=== PATIENT | male | born 1940 | race Caucasian/White ===

== ENCOUNTER 2018-07-04 05:29 | Emergency (ER) | payer MEDICARE ==
[~2018-07-04] VITALS: Ht 185.4 cm; Wt 83.9 kg
[~2018-07-04 05:29] MED LIST: ASPI325 PO; ATOR20 PO; AZIT250 PO; CEFD300 PO; CITA20 PO; GLIP5 PO; JEVITY; LEVSOD100 PO; MECL12.5 PO; METF500 PO; METO25 PO; METO50ER PO; Novolog100 UNIT/1 SQ
== END 2018-07-04 07:03 | disposition home or self-care (01) ==
LOC: ER 05:29
DX: Z46.59 Encounter for fitting and adjustment of other gastrointestinal appliance and device (principal); C80.1 Malignant (primary) neoplasm, unspecified; Z88.8 Allergy status to other drugs, medicaments and biological substances; Z79.899 Other long term (current) drug therapy; Z79.82 Long term (current) use of aspirin; Z79.4 Long term (current) use of insulin; Z87.891 Personal history of nicotine dependence
CPT/HCPCS: 51702; 99282

== ENCOUNTER 2020-10-25 00:41 | Observation (INO) | payer OTHER, MEDICARE ==
[~2020-10-25] VITALS: Ht 188 cm; Wt 82.6 kg
[~2020-10-25 00:41] MED LIST changes: +ATOR10 PO; -ATOR20 PO; +EUTHYROX125 MCG PO; -LEVSOD100 PO
[2020-10-25 01:10] LABS: BASOPHILS ABSOLUTE AUTO 0.05 K/mm3 (0.00-0.23); BASOPHILS PERCENT AUTO 1 % (0-2); EOSINOPHILS ABSOLUTE AUTO 0.11 K/mm3 (0.00-0.68); EOSINOPHILS PERCENT AUTO 2 % (0-6); Hematocrit 39.5 % (37.0-53.0); Hemoglobin 12.6 g/dL (13.5-17.5); IMMATURE GRAN ABSOLUTE AUTO 0.04 K/mm3 (0.00-0.10); IMMATURE GRAN PERCENT AUTO 1 % (0-1); LYMPHOCYTES ABSOLUTE AUTO 3.03 K/mm3 (0.84-5.20); LYMPHOCYTES PERCENT AUTO 41 % (21-46); MONOCYTES ABSOLUTE AUTO 0.63 K/mm3 (0.16-1.47); MONOCYTES PERCENT AUTO 8 % (4-13); Mean Corpuscular HGB Conc 31.9 g/dL (31.5-36.5); Mean Corpuscular Volume 82 fL (80-100); Mean Platelet Volume 10.8 fL (9.1-12.4); NEUTROPHILS ABSOLUTE AUTO 3.63 K/mm3 (1.96-9.15); NEUTROPHILS PERCENT AUTO 48 % (41-73); Platelet Count 231 K/mm3 (150-400); RDW Coefficient Variation 14.9 % (11.7-14.2); RDW Standard Deviation 44.4 fL (35.1-46.3); Red Blood Cell Count 4.84 M/mm3 (4.30-5.90); White Blood Cell Count 7.49 K/mm3 (4.00-11.30)
[2020-10-25 01:25] LABS: Alanine Aminotransfer (ALT/SGP 20 U/L (12-78); Albumin, Blood 3.5 g/dL (3.4-5.0); Alk Phos 133 U/L (50-136); Anion Gap 12 mmol/L (6-16); Aspartate Aminotrans (AST/SGOT 19 U/L (12-37); Bilirubin, Total 0.3 mg/dL (0.1-1.0); Blood Urea Nitrogen 18 mg/dL (8-24); Bun/Creatinine Ratio 24.1 (12.0-20.0); CO2, Blood 22 mmol/L (21-32); Calcium, Blood 8.7 mg/dL (8.5-10.1); Chloride, Blood 99 mmol/L (98-108); Creatinine, Blood 0.75 mg/dL (0.60-1.20); Globulin, Blood 3.5 g/dL (2.2-4.0); Glomerular Filtration Rate >60 (60-); Glucose, Blood 200 mg/dL (70-99); Potassium, Blood 4.3 mmol/L (3.5-5.5); Sodium, Blood 133 mmol/L (136-145); Troponin I <0.015 ng/mL (0.000-0.040)
[2020-10-25] MEDS ORDERED: CITA20 PO (01:39)
[2020-10-25] MEDS ORDERED: ASPI81CH PT (11:22)
--- NOTE | 2020-10-25 16:46 | NUR ---
PT TUBE FEED STARTED THIS EARLY AFT. HAD TO STOP FOR TESTINGS. JUST FINISHED. [place] HAS BEEN IN SEERAL TIMES TO DISCUSS WITH DR AND PT. DID FINISH 430 FEEDING AND 90 WATER. WILL CONTINUE WITH DIXON FEEDING TONITE SHIFT.
--- NOTE | 2020-10-25 18:07 | NUR ---
PT HAS BEEN QUITE PLEASANT TODAY. IN TO SEE TODAY. DID FINALLY GET INSULIN, TUBE FEEDING AND FLUIDS ADJUSTED TO PATIENT SATISFACTION. PT STATES DOING OKAY TODAY. AMBULATED SBA TO BATHROOM WITH PUMP WITH MIN DIFFICULTY. NO SEIZURE LIKE ACTIVITY NOTED TODAY. PEND RESULTS TESTS . BED IN LOW POSITIOIN, CALL LITE IN REACH, CALLS APPROP
--- NOTE | 2020-10-25 18:45 | NUR ---
PT HAS HAD LATE FEEDINGS THIS AM, AND AFT. POSTPONED DIXON FEEDING TO NOW. IS TO HAVE CBG TAKEN JUST PRIOR. DOING NOW, AND WILL ADMIN INSULIN AND START FEEDING. PT REQUESTING 1/2 DOSE FEEDING AT THIS TIME.
[2020-10-25] MEDS ORDERED: INSULIN AS100 UNIT/8 SC (23:34)
[2020-10-25] MEDS ORDERED: BASAGLAR K100 UNIT/4 SC (23:35)
[2020-10-25] MEDS ORDERED: JEVITY 1.5 CAL PT (23:39)
[2020-10-25] MEDS ORDERED: NUTRITIONAL SUPPLEME PT (23:43)
--- NOTE | 2020-10-26 06:03 | NUR ---
SHIFT SUMMARY- PT. A&O, PLEASANT. PT. HAS TRACHEOSTOMY AND PEG TUBE TO L ABD, TF'S DONE LAST NIGHT AND THIS AM. PT. TOLERATIGN WELL. 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 NO COMPLAINTS OF PAIN OR DISCOMFORT LAST NIGHT. SLEPT ON/OFF DURING THE NIGHT. PT. INDEPENDENT IN ROOM, DENIED ANY NEEDS T/O THE NIGHT. VSS. CALL LIGHT WITHIN REACH AND SIDE RAILS UPX2. WILL CONT TO MONITOR.
[2020-10-26] MEDS ORDERED: KEPPRA250 M1 PO (11:23)
[2020-10-26] MEDS ORDERED: METO25 PO (11:24)
--- NOTE | 2020-10-26 11:55 | NUR ---
DISCHARGE REVIEWED WITH PT AND . VERBALIZED UNDERSTANDING. AGREES PICK MEDS UP AT [facility] AND TO FOLLOW WITH DR LAMAR. IV X2 REMOVED INTACT. TELE REMOVED AND RETURNED. PT WHEELED TO DOOR BY AIDE AT 1202
--- NOTE | 2020-10-26 12:06 | NUR ---
Patient is sitting up in bed and alert. Patient communicates by writing on a tablet. He writes about his medical issues, his past medical problems and his inspiration to press on against all odds. Patient explains about his orthodoxy background but expresses that they have not played apart in the strength that he has. He communicates about his personal struggles and is tearful as he shares. I provide spiritual guidance, therapeutic listening and prayer. Patient smiles and writes, "Thank you."
== END 2020-10-26 12:03 | disposition home or self-care (01) ==
LOC: ER 00:41 → MEDS 04:23 → ERHOLD 04:23 → MEDS 10:30 → ENPENDDIS 10-26 10:50 → MEDS 10-26 12:03
PROVIDERS: Emergency Medicine; ADMIT Family Medicine
DX: R56.9 Unspecified convulsions (principal); I67.2 Cerebral atherosclerosis; D64.9 Anemia, unspecified; E87.1 Hypo-osmolality and hyponatremia; E11.649 Type 2 diabetes mellitus with hypoglycemia without coma; F32.9 Major depressive disorder, single episode, unspecified; E78.5 Hyperlipidemia, unspecified; E03.9 Hypothyroidism, unspecified; I10 Essential (primary) hypertension; Z85.810 Personal history of malignant neoplasm of tongue; Z93.0 Tracheostomy status; Z93.1 Gastrostomy status; Z86.73 Personal history of transient ischemic attack (TIA), and cerebral infarction without residual deficits; Z79.4 Long term (current) use of insulin; Z79.82 Long term (current) use of aspirin
CPT/HCPCS: 70450; 70551; 71045; 80053; 82947; 84145; 84146; 84484; 85025; 93005; 93010; 95819; 96372; 99285-25; A9270; G0378; J1650; J1815

== ENCOUNTER 2021-01-05 00:02 | Emergency (ER) | payer OTHER, MEDICARE ==
[~2021-01-05] VITALS: Ht 188 cm; Wt 81.7 kg
[~2021-01-05 00:02] MED LIST changes: +ASPI81CH PT; +BASAGLAR K100 UNIT/4 SC; +INSULIN AS100 UNIT/8 SC; +JEVITY 1.5 CAL PT; +KEPPRA250 M1 PO; +NUTRITIONAL SUPPLEME PT
[2021-01-05 00:54] LABS: BASOPHILS ABSOLUTE AUTO 0.05 K/mm3 (0.00-0.23); BASOPHILS PERCENT AUTO 1 % (0-2); EOSINOPHILS ABSOLUTE AUTO 0.16 K/mm3 (0.00-0.68); EOSINOPHILS PERCENT AUTO 3 % (0-6); Hemoglobin 12.8 g/dL (13.5-17.5); IMMATURE GRAN ABSOLUTE AUTO 0.01 K/mm3 (0.00-0.10); IMMATURE GRAN PERCENT AUTO 0 % (0-1); LYMPHOCYTES ABSOLUTE AUTO 1.71 K/mm3 (0.84-5.20); LYMPHOCYTES PERCENT AUTO 32 % (21-46); MONOCYTES ABSOLUTE AUTO 0.46 K/mm3 (0.16-1.47); MONOCYTES PERCENT AUTO 9 % (4-13); Mean Corpuscular HGB 27.2 pg (26.0-34.0); Mean Corpuscular HGB Conc 32.8 g/dL (31.5-36.5); Mean Corpuscular Volume 83 fL (80-100); Mean Platelet Volume 10.9 fL (9.1-12.4); NEUTROPHILS PERCENT AUTO 56 % (41-73); Platelet Count 184 K/mm3 (150-400); RDW Coefficient Variation 14.9 % (11.7-14.2); RDW Standard Deviation 45.3 fL (35.1-46.3); Red Blood Cell Count 4.71 M/mm3 (4.30-5.90); White Blood Cell Count 5.39 K/mm3 (4.00-11.30)
[2021-01-05 01:13] LABS: Alanine Aminotransfer (ALT/SGP 20 U/L (12-78); Albumin, Blood 3.2 g/dL (3.4-5.0); Albumin/Globulin Ratio 0.9 (0.8-1.8); Alk Phos 129 U/L (50-136); Anion Gap 9 mmol/L (6-16); Aspartate Aminotrans (AST/SGOT 30 U/L (12-37); Bilirubin, Total 0.4 mg/dL (0.1-1.0); Blood Urea Nitrogen 14 mg/dL (8-24); Bun/Creatinine Ratio 21.5 (12.0-20.0); CO2, Blood 26 mmol/L (21-32); Calcium, Blood 9.2 mg/dL (8.5-10.1); Chloride, Blood 98 mmol/L (98-108); Creatinine, Blood 0.65 mg/dL (0.60-1.20); Globulin, Blood 3.4 g/dL (2.2-4.0); Glomerular Filtration Rate >60 (60-); Glucose, Blood 155 mg/dL (70-99); Potassium, Blood 4.6 mmol/L (3.5-5.5); Sodium, Blood 133 mmol/L (136-145); Total Protein, Blood 6.6 g/dL (6.4-8.2)
== END 2021-01-05 03:40 | disposition home or self-care (01) ==
LOC: ER 00:02
PROVIDERS: Emergency Medicine
DX: R56.9 Unspecified convulsions (principal); Z79.899 Other long term (current) drug therapy; Z87.891 Personal history of nicotine dependence
CPT/HCPCS: 36415; 71045; 80053; 82947; 83605; 85025; 93005; 93010; 96365; 99285-25; J1953

== ENCOUNTER 2022-04-06 09:13 | Emergency (ER) | payer OTHER ==
[~2022-04-06] VITALS: Ht 182.9 cm; Wt 77.6 kg
== END 2022-04-06 10:51 | disposition home or self-care (01) ==
LOC: ER 09:13
DX: K94.13 Enterostomy malfunction (principal); E11.9 Type 2 diabetes mellitus without complications; E78.5 Hyperlipidemia, unspecified; E03.9 Hypothyroidism, unspecified; I10 Essential (primary) hypertension; Z86.73 Personal history of transient ischemic attack (TIA), and cerebral infarction without residual deficits; Z79.899 Other long term (current) drug therapy; Z79.82 Long term (current) use of aspirin; Z79.4 Long term (current) use of insulin
CPT/HCPCS: 82947

== ENCOUNTER 2022-05-08 23:42 | Emergency (ER) | payer OTHER ==
[~2022-05-08] VITALS: Ht 182.9 cm; Wt 72.6 kg
[~2022-05-08 23:42] MED LIST changes: -ASPI325 PO; +ASPI325 PT; -ATOR10 PO; +ATOR10 PT; +CITA20 PT; +CLOP75 PT; -EUTHYROX125 MCG PO; +EUTHYROX175 MCG PT; +JARDIANCE25 MG PT; +JUVEN PACKET1 EAC3 PT; +KEPPRA100 MG/1 M PT; -KEPPRA250 M1 PO; -METF500 PO; +METF500 PT; +METO25 PT; +VANCOCIN HCL125 MG PT; +Vancocin HCl125 MG PT
[2022-05-09 00:36] LABS: BASOPHILS ABSOLUTE AUTO 0.04 K/mm3 (0.00-0.23); BASOPHILS PERCENT AUTO 1 % (0-2); EOSINOPHILS ABSOLUTE AUTO 0.38 K/mm3 (0.00-0.68); EOSINOPHILS PERCENT AUTO 7 % (0-6); Hematocrit 34.3 % (37.0-53.0); Hemoglobin 11.4 g/dL (13.5-17.5); IMMATURE GRAN PERCENT AUTO 0 % (0-1); LYMPHOCYTES ABSOLUTE AUTO 1.65 K/mm3 (0.84-5.20); LYMPHOCYTES PERCENT AUTO 32 % (21-46); MONOCYTES ABSOLUTE AUTO 0.59 K/mm3 (0.16-1.47); MONOCYTES PERCENT AUTO 11 % (4-13); Mean Corpuscular HGB 27.4 pg (26.0-34.0); Mean Corpuscular HGB Conc 33.2 g/dL (31.5-36.5); Mean Corpuscular Volume 83 fL (80-100); Mean Platelet Volume 9.7 fL (9.1-12.4); NEUTROPHILS ABSOLUTE AUTO 2.57 K/mm3 (1.96-9.15); NEUTROPHILS PERCENT AUTO 49 % (41-73); Platelet Count 231 K/mm3 (150-400); RDW Coefficient Variation 14.6 % (11.7-14.2); Red Blood Cell Count 4.16 M/mm3 (4.30-5.90); White Blood Cell Count 5.23 K/mm3 (4.00-11.30)
[2022-05-09 03:24] LABS: Albumin/Globulin Ratio 0.9 (0.8-1.8); Bilirubin, Total 0.5 mg/dL (0.1-1.0); Bun/Creatinine Ratio 29.9 (12.0-20.0); Calcium, Blood 9.1 mg/dL (8.5-10.1); Creatinine, Blood 0.64 mg/dL (0.60-1.20); Globulin, Blood 3.4 g/dL (2.2-4.0); Potassium, Blood 4.4 mmol/L (3.5-5.5); Total Protein, Blood 6.4 g/dL (6.4-8.2)
== END 2022-05-09 04:27 | disposition home or self-care (01) ==
LOC: ER 23:42
PROVIDERS: Student in an Organized Health Care Education/Training Program
DX: S30.0XXA Contusion of lower back and pelvis, initial encounter (principal); S70.12XA Contusion of left thigh, initial encounter; D64.9 Anemia, unspecified; E11.9 Type 2 diabetes mellitus without complications; E78.5 Hyperlipidemia, unspecified; E03.9 Hypothyroidism, unspecified; I10 Essential (primary) hypertension; Z88.8 Allergy status to other drugs, medicaments and biological substances; Z79.899 Other long term (current) drug therapy; Z79.4 Long term (current) use of insulin; Z79.82 Long term (current) use of aspirin; Z86.73 Personal history of transient ischemic attack (TIA), and cerebral infarction without residual deficits; X58.XXXA Exposure to other specified factors, initial encounter
CPT/HCPCS: 36415; 80053; 85025

== ENCOUNTER → 2024-02-17 | Outpatient (CLI) | payer OTHER ==
[2024-02-17 12:50] LABS: BASOPHILS ABSOLUTE AUTO 0.03 K/mm3 (0.00-0.23); BASOPHILS PERCENT AUTO 1 % (0-2); EOSINOPHILS ABSOLUTE AUTO 0.02 K/mm3 (0.00-0.68); EOSINOPHILS PERCENT AUTO 1 % (0-6); Hemoglobin 13.9 g/dL (13.5-17.5); IMMATURE GRAN PERCENT AUTO 0 % (0-1); LYMPHOCYTES ABSOLUTE AUTO 0.55 K/mm3 (0.84-5.20); LYMPHOCYTES PERCENT AUTO 25 % (21-46); MONOCYTES ABSOLUTE AUTO 0.14 K/mm3 (0.16-1.47); MONOCYTES PERCENT AUTO 6 % (4-13); Mean Corpuscular HGB 29.6 pg (26.0-34.0); Mean Corpuscular HGB Conc 32.3 g/dL (31.5-36.5); Mean Corpuscular Volume 92 fL (80-100); Mean Platelet Volume 10.9 fL (9.1-12.4); NEUTROPHILS ABSOLUTE AUTO 1.45 K/mm3 (1.96-9.15); NEUTROPHILS PERCENT AUTO 66 % (41-73); Platelet Count 119 K/mm3 (150-400); RDW Coefficient Variation 14.8 % (11.7-14.2); RDW Standard Deviation 47.4 fL (35.1-46.3); White Blood Cell Count 2.19 K/mm3 (4.00-11.30)
[2024-02-17 13:06] LABS: Albumin, Blood 3.4 g/dL (3.4-5.0); Bilirubin, Total 0.5 mg/dL (0.1-1.0); Bun/Creatinine Ratio 33.2 (12.0-20.0); Calcium, Blood 8.9 mg/dL (8.5-10.1); Creatinine, Blood 0.63 mg/dL (0.60-1.20); Globulin, Blood 3.5 g/dL (2.2-4.0); Total Protein, Blood 6.9 g/dL (6.4-8.2)
[2024-02-17 13:30] LABS: BASOPHILS PERCENT MAN 0 % (0-2); EOSINOPHILS ABSOLUTE MAN 0.06 K/mm3 (0.00-0.68); EOSINOPHILS PERCENT MAN 3 % (0-6); LYMPHOCYTES ABSOLUTE MAN 0.43 K/mm3 (0.84-5.20); LYMPHOCYTES PERCENT MAN 20 % (21-46); MONOCYTES ABSOLUTE MAN 0.19 K/mm3 (0.16-1.47); MONOCYTES PERCENT MAN 9 % (4-13); NEUTROPHILS ABSOLUTE MAN 1.48 K/mm3 (1.96-9.15); SEG NEUTROPHILS PERCENT MAN 68 % (41-73); TOTAL CELLS COUNTED 100
== END ==
LOC: LAB 12:38 → LAB SHORT 12:38
PROVIDERS: Internal Medicine Hematology & Oncology
DX: C34.12 Malignant neoplasm of upper lobe, left bronchus or lung (principal)
CPT/HCPCS: 80053; 85025